=== PATIENT | male | born 1990 | race African-American/Black ===

== ENCOUNTER 2021-03-16 20:03 | Emergency (ER) | payer BC, OTHER ==
[2021-03-16 20:16] VITALS: BP 145/79; PULSE 87
[2021-03-16] MEDS ORDERED: Ketorolac 60 MG/2 ML SDV IM ONE (20:41)
--- NOTE | 2021-03-16 20:46 | EDM.PDOC ---
ED HPI GENERAL MEDICAL PROBLEM - General Chief Complaint: Upper Extremity Injury/Pain Stated Complaint: right wrist possibly broken Time Seen by Provider: 03/16/21 20:09 Source of Information: Reports: Patient, RN Notes Reviewed History Limitations: Reports: No Limitations - History of Present Illness INITIAL COMMENTS - FREE TEXT/NARRATIVE: Patient is a 31-year-old male presenting to the emergency department complaints of right wrist pain. He was playing soccer and fell on his right wrist. Denies any previous fractures to this joint. He has not taken anything for pain thus far. Denies any numbness or tingling distal to the injury. Right Wrist Pain Score (Numeric/FACES): 9 - Related Data Allergies Allergy/AdvReac Type Severity Reaction Status Date / Time No Known Allergies Allergy Verified 03/16/21 20:11 Home Meds: Home Meds . [No Known Home Meds] 11/29/15 [History] Past Medical History - Past Health History Medical/Surgical History: Denies Medical/Surgical History HEENT History: Reports: None Cardiovascular History: Reports: None Respiratory History: Reports: None Gastrointestinal History: Reports: None Genitourinary History: Reports: None Musculoskeletal History: Reports: Neck Pain, Chronic Neurological History: Reports: None Psychiatric History: Reports: None Endocrine/Metabolic History: Reports: None Hematologic History: Reports: None Immunologic History: Reports: None Oncologic (Cancer) History: Reports: None Dermatologic History: Reports: None - Infectious Disease History Infectious Disease History: Reports: None - Past Surgical History HEENT Surgical History: Reports: None Social & Family History - Family History Family Medical History: No Pertinent Family History - Tobacco Use Tobacco Use Status *Q: Never Tobacco User - Caffeine Use Caffeine Use: Reports: Coffee - Recreational Drug Use Recreational Drug Use: No Review of Systems - Review of Systems Review Of Systems: Comprehensive ROS is negative, except as noted in HPI. ED EXAM, GENERAL - Physical Exam Exam: See Below Exam Limited By: No Limitations General Appearance: Alert, WD/WN, No Apparent Distress Respiratory/Chest: No Respiratory Distress, Lungs Clear, Normal Breath Sounds, No Accessory Muscle Use, Chest Non-Tender Cardiovascular: Normal Peripheral Pulses, Regular Rate, Rhythm, No Edema, No Gallop, No JVD, No Murmur, No Rub Extremities: Other (tenderness to palpation of the right middle wrist. No swelling, ecchymosis, or obvious deformity. CMS intact distal to the injury.) Course - Vital Signs Last Recorded V/S: Last Vital Signs Temp 97.6 F 03/16/21 20:14 Pulse 87 03/16/21 20:14 Resp 18 03/16/21 20:14 BP 145/79 H 03/16/21 20:14 Pulse Ox 100 03/16/21 20:14 - Orders/Labs/Meds Orders: Active Orders 24 hr Category Date Time Status Wrist Comp Min 3V Rt [CR] Stat Exams 03/16/21 20:15 Taken DME for Discharge [COMM] Routine Oth 03/16/21 20:41 Ordered Meds: Medications Discontinued Medications Generic Name Dose Route Start Last Admin Trade Name Freq PRN Reason Stop Dose Admin Ketorolac Tromethamine 60 mg 03/16/21 20:41 Ketorolac 60 Mg/2 Ml Sdv IM 03/16/21 20:42 ONETIME ONE - Re-Assessments/Exams Free Text/Narrative Re-Assessment/Exam: Patient is a 31-year-old male presenting to the emergency department complaints of right wrist pain after falling on it while playing soccer. X-rays were co mpleted and reviewed by myself and Dr. Reese and showed no acute fractures. Patient has been placed in a Velcro wrist splint to stabilize the joint. Recommend intermittent ice and elevation. I will give him an injection of Toradol 60 mg now. He may use Tylenol and ibuprofen as needed at home for discomfort. If discomfort does not resolve within the next week, he should follow-up with orthopedist, Dr. Humphries. Discharge instructions as documented. Departure - Departure Time of Disposition: 20:44 Disposition: Home, Self-Care 01 Condition: Good Clinical Impression: Wrist sprain Qualifiers: Encounter type: initial encounter Laterality: right Qualified Code(s): S63.501A - Unspecified sprain of right wrist, initial encounter - Discharge Information *PRESCRIPTION DRUG MONITORING PROGRAM REVIEWED*: No *COPY OF PRESCRIPTION DRUG MONITORING REPORT IN PATIENT TEDDY: No Instructions: Wrist Sprain, Adult Referrals: PCP,None [Primary Care Provider] - Forms: ED Department Discharge Additional Instructions: You were seen in the emergency department today for pain to your right wrist after falling on it while playing soccer. X-rays are completed and showed no evidence of fracture. Likely sprain brain your wrist. You have been provided a Velcro wrist splint to stabilize the joint. Recommend intermittent ice and elevation for the next few days. You may use Tylenol or ibuprofen as needed for discomfort. If you are still having pain after 1 week, recommend follow-up with orthopedist, Dr. Humphries at [facility]. Return to ER as needed. Sepsis Event Note (ED) - Evaluation Sepsis Screening Result: No Definite Risk - Focused Exam Vital Signs: Vital Signs Temp Pulse Resp BP Pulse Ox 03/16/21 20:14 97.6 F 87 18 145/79 H 100 - My Orders Last 24 Hours: My Active Orders 03/16/21 20:15 Wrist Comp Min 3V Rt [CR] Stat 03/16/21 20:41 DME for Discharge [COMM] Routine - Assessment/Plan Last 24 Hours: My Active Orders 03/16/21 20:15 Wrist Comp Min 3V Rt [CR] Stat 03/16/21 20:41 DME for Discharge [COMM] Routine
--- NOTE | 2021-03-17 18:28 | CR ---
Right wrist: 3 views centered to the right wrist were obtained. Comparison: No prior wrist exam is available. Joint spaces are preserved. No acute fracture, dislocation or other bony abnormality is appreciated. Impression: 1. Nothing acute is seen on three-view right wrist exam. Diagnostic code #1
== END 2021-03-16 21:10 | disposition home or self-care (01) ==
LOC: JD.ED 20:03
DX: S63.501A Unspecified sprain of right wrist, initial encounter (principal); W18.30XA Fall on same level, unspecified, initial encounter; Y93.66 Activity, soccer
CPT/HCPCS: 73110; 96372; 99283; J1885

== ENCOUNTER 2022-08-03 16:06 | Emergency (ER) | payer OTHER ==
[2022-08-03 16:39] VITALS: BP 136/89; PULSE 89
[2022-08-03] MEDS ORDERED: Ketorolac 30 MG/ML SDV IM ONE (16:55)
[2022-08-03] MEDS ORDERED: Metoclopramide 10 MG/2 ML SDV IM ONE (16:55)
[2022-08-03] MEDS ORDERED: diphenhydrAMINE 50 MG/ML SDV IM ONE (16:55)
== END 2022-08-03 19:11 | disposition home or self-care (01) ==
LOC: JD.ED 16:06
DX: G44.209 Tension-type headache, unspecified, not intractable (principal)
CPT/HCPCS: 96372; 99283; J1200; J1885; J2765; 99282